=== PATIENT | female | born 1975 | race Two or more races ===

== ENCOUNTER 2024-03-06 11:45 | Emergency (ER) | payer MEDICAID, OTHER ==
[~2024-03-06] VITALS: Ht 172.7 cm; Wt 97.9 kg
[2024-03-06] MEDS: ACETAMINOPHEN 325 MG TAB PO ONE (12:11)
[2024-03-06 12:43] LABS: Urine Bacteria FEW /hpf (None Seen); Urine Blood 2+ /uL (Negative); Urine Budding Yeast OCCASIONAL /hpf (None Seen); Urine Clarity Turbid (Clear); Urine Color Dark-Yellow (Yellow); Urine Hyaline Cast FEW /lpf (0 - 2); Urine Hyphae Yeast PRESENT /hpf; Urine Mucus FEW (None Seen); Urine Protein, UAD 2+ (Negative); Urine Sperm PRESENT /hpf (None Seen); Urine WBC 16 /hpf (0 - 5)
[2024-03-06 12:46] LABS: Urine Urobilinogen 4 mg/dL (Negative)
[2024-03-06] MEDS ORDERED: CIPR-173 PO (13:07)
[2024-03-06] MEDS: CIPROFLOXACIN HCL 500 MG TAB PO ONE (13:13)
[2024-03-06 13:17] VITALS: BP 125/78; PULSE 89; RESP 17; TEMP 98.3; O2SAT 98
[2024-03-08] MEDS ORDERED: LEVO500T91 PO (11:05)
== END 2024-03-06 13:18 | disposition home or self-care (01) ==
LOC: ER 11:45
DX: N39.0 Urinary tract infection, site not specified (principal); Z90.49 Acquired absence of other specified parts of digestive tract; Z90.710 Acquired absence of both cervix and uterus
CPT/HCPCS: 81001